=== PATIENT | male | born 1970 | race Caucasian/White ===

== ENCOUNTER 2023-02-20 14:56 | Outpatient (CLI) | payer OTHER, SELFPAY ==
--- NOTE | ~2023-02-20 | XR_ITS ---
EXAMINATION: XR hip RT 2V w AP pelvis DATE: 02/20/2023 15:34 INDICATION: Right hip pain. TECHNIQUE: An anteroposterior view of the pelvis and 2 views of right hip were obtained. COMPARISON: None. FINDINGS: Bone alignment is normal. No fracture. There is severe lumbar spondylosis. There is advance d right hip osteoarthritis including bone volume loss of the femoral head and acetabulum. There is mo derate left hip osteoarthritis. IMPRESSION: 1. Advanced right hip osteoarthritis and moderate left hip osteoarthritis. Reviewed, dictated and finalized at location A.
== END 2023-02-20 14:57 ==
PROVIDERS: PCP Internal Medicine; Visit Provider Internal Medicine
DX: M25.551 Pain in right hip (principal); M16.0 Bilateral primary osteoarthritis of hip
CPT/HCPCS: 73502

== ENCOUNTER 2023-04-24 10:10 | Outpatient (CLI) | payer OTHER, SELFPAY ==
--- NOTE | ~2023-04-24 | MR_ITS ---
MRI of the right hip Clinical history: Osteoarthritis Technique: Coronal T1-weighted, T2-weighted, and proton-density fat-sat images, and axial T1-weighted and proton-density fat-sat images were acquired through the pelvis. Coronal T2-weighted images and c oronal, axial, and sagittal proton-density fat-sat images were acquired through the right hip. Findings: There is severe osteoarthritis of the right hip joint. There is diffuse joint space narrowi ng, large osteophyte formation, with flattening and remodeling of the humeral head. There is heteroge neous marrow edema about the joint, with small areas of subchondral cystic change. Underlying avascul ar necrosis cannot be completely excluded. No acute fracture evident. There is associated moderate to large right hip joint effusion. There is probable extensive degenerative labral tearing at the right hip joint. There is minimal chondromalacia the left hip joint. Suggestion of mild prominence of the femoral head neck junction bilaterally, which can indicate underlying femoral acetabular cam-type impingement. No significant left hip joint effusion. There is relative loss of bulk of the right gluteus medius and alexander muscles as compared to the lef t side. Visualized tendons are intact. No fatty atrophy clearly evident. No soft tissue mass or other fluid collection seen. No bursitis. IMPRESSION: Severe osteoarthritis of the right hip joint, as detailed above. Underlying avascular necrosis diffic ult to completely exclude given the extensive remodeling of the femoral head. Moderate to large right hip joint effusion, presumably reactive. 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 Relative loss of bulk of the right gluteus medius and alexander muscles as compared to left side. Reviewed, dictated and finalized at [facility]. IMPRESSION: Severe osteoarthritis of the right hip joint, as detailed above. Underlying mercy scular necrosis difficult to completely exclude given the extensive remodeling of the femoral head. Moderate to large right hip joint effusion, presumably reactive. 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 Relative loss of bulk of the right gluteus medius and alexander muscles as compar ed to left side.
== END 2023-04-24 10:11 ==
PROVIDERS: PCP Orthopaedic Surgery; Visit Provider Orthopaedic Surgery
DX: M16.11 Unilateral primary osteoarthritis, right hip (principal); M25.451 Effusion, right hip; S73.191A Other sprain of right hip, initial encounter
CPT/HCPCS: 73721

== ENCOUNTER 2023-05-23 10:24 | Outpatient (CLI) | payer OTHER, SELFPAY ==
--- NOTE | ~2023-05-23 | XR_ITS ---
EXAMINATION: XR scanogram DATE: 05/23/2023 10:51 INDICATION: Unequal limb length. TECHNIQUE: An anteroposterior view of the pelvis and lower extremities standing was obtained. COMPARISON: Pelvis and right hip radiographs 02/20/2023 FINDINGS: The right heel is elevated off of the ground such that the right talus is 4.5 cm higher cleo n the left. The right tibial plateau is similarly 4.5 cm higher than the left. There is advanced righ t hip osteoarthritis with flattening of superior femoral head. There is moderate left hip osteoarthri tis. Right acetabulum is 2.2 cm higher than the left. There is severe lumbar spondylosis. Osteopenia is noted. IMPRESSION: 1. Advanced right hip osteoarthritis and moderate left hip osteoarthritis. Reviewed, dictated and finalized at location A. [employer]
== END 2023-05-23 10:25 | disposition home or self-care (01) ==
PROVIDERS: PCP Internal Medicine; Visit Provider Orthopaedic Surgery
DX: M16.0 Bilateral primary osteoarthritis of hip (principal); M21.70 Unequal limb length (acquired), unspecified site
CPT/HCPCS: 77073